=== PATIENT | female | born 1970 | race Caucasian/White ===

== ENCOUNTER 2021-12-16 12:33 | Outpatient (CLI) | payer MEDICARE, OTHER | END 2021-12-16 12:34 | disposition home or self-care (01) | LOC: CSHMRI 12:33 | PROVIDERS: ATTEND Neurological Surgery | DX: Q85.02 Neurofibromatosis, type 2 (principal); G95.9 Disease of spinal cord, unspecified; H93.8X3 Other specified disorders of ear, bilateral; G93.9 Disorder of brain, unspecified | CPT/HCPCS: 70553; 72157 ==

== ENCOUNTER 2021-12-21 12:27 | Outpatient (CLI) | payer MEDICARE, OTHER | END 2021-12-21 12:28 | disposition home or self-care (01) | LOC: CSHMRI 12:27 | PROVIDERS: ATTEND Neurological Surgery | DX: Q85.02 Neurofibromatosis, type 2 (principal); Z98.890 Other specified postprocedural states; M51.37 Other intervertebral disc degeneration, lumbosacral region; M48.07 Spinal stenosis, lumbosacral region; M51.26 Other intervertebral disc displacement, lumbar region; M48.8X2 Other specified spondylopathies, cervical region; M47.812 Spondylosis without myelopathy or radiculopathy, cervical region | CPT/HCPCS: 72156; 72158 ==